=== PATIENT | female | born 1965 | race Caucasian/White ===

== ENCOUNTER → 2016-09-05 | Outpatient (CLI) | payer BC | LOC: KOH-I 09:20 | DX: R05 Cough (principal) | CPT/HCPCS: 71020 ==

== ENCOUNTER 2020-10-07 17:39 | Inpatient (IN) | payer BC, OTHER ==
[~2020-10-07] VITALS: Ht 167.6 cm; Wt 127.9 kg
[~2020-10-07 17:39] MED LIST: BENADRYL 25MG C25 MG PO; PEPCID20 MG PO; PREDNISONE50 MG PO
[2020-10-07 18:43] LABS: HEMOGLOBIN 13.4 gm/dl (12.3-15.3); RED BLOOD COUNT 4.59 M/UL (4.00-5.10); WHITE BLOOD COUNT 21.5 K/UL (4.5-11.0)
[2020-10-07] MEDS ORDERED: POTASSIUM CHLO10 ME2 PO (22:21)
[2020-10-07] MEDS ORDERED: HYDROCHLOROTHIA25 MG PO (22:21)
[2020-10-07] MEDS ORDERED: ATORVASTATIN CA40 MG PO (22:21)
[2020-10-07] MEDS ORDERED: AMLODIPINE-BEN1 EACH PO (22:21)
[2020-10-07] MEDS ORDERED: FEXOFENADINE H180 MG PO (22:22)
[2020-10-09 03:53] LABS: HEMOGLOBIN 10.8 gm/dl (12.3-15.3); RED BLOOD COUNT 3.82 M/UL (4.00-5.10); WHITE BLOOD COUNT 13.2 K/UL (4.5-11.0)
[2020-10-10 04:51] LABS: HEMOGLOBIN 10.6 gm/dl (12.3-15.3); RED BLOOD COUNT 3.77 M/UL (4.00-5.10); WHITE BLOOD COUNT 8.6 K/UL (4.5-11.0)
== END 2020-10-10 15:45 | disposition home or self-care (01) | DRG 872 ==
LOC: ER1 17:39 → CDU 20:20 → MED SURG 4 20:20
PROVIDERS: Internal Medicine Infectious Disease; Physician Assistant Medical; ADMIT Internal Medicine
DX: A41.9 Sepsis, unspecified organism (principal); L03.115 Cellulitis of right lower limb; Z68.42 Body mass index [BMI] 45.0-49.9, adult; I50.32 Chronic diastolic (congestive) heart failure; E87.2 Acidosis; Z20.822 Contact with and (suspected) exposure to COVID-19; E87.6 Hypokalemia; E66.01 Morbid (severe) obesity due to excess calories; E11.9 Type 2 diabetes mellitus without complications; E78.5 Hyperlipidemia, unspecified; I11.0 Hypertensive heart disease with heart failure; Z83.3 Family history of diabetes mellitus; Z84.0 Family history of diseases of the skin and subcutaneous tissue; Z79.84 Long term (current) use of oral hypoglycemic drugs
CPT/HCPCS: 36415; 80053; 82550; 82553; 82962; 83036; 83605; 84484; 85025; 87040; 87081; 93005; 96365; 99284; J0153; J0696; J2543; U0002

== ENCOUNTER → 2020-10-11 | Outpatient (CLI) | payer BC, OTHER ==
[~2020-10-11] MED LIST changes: +AMLODIPINE-BEN1 EACH PO; +ATORVASTATIN CA40 MG PO; +FEXOFENADINE H180 MG PO; +HYDROCHLOROTHIA25 MG PO; +POTASSIUM CHLO10 ME2 PO
== END ==
LOC: OPSV 13:49
DX: L03.115 Cellulitis of right lower limb (principal)
CPT/HCPCS: 96365; J0696

== ENCOUNTER → 2020-10-12 | Outpatient (CLI) | payer BC, OTHER ==
[~2020-10-12] VITALS: Ht 167.6 cm; Wt 127.0 kg
== END ==
LOC: OPSV 11:00
DX: L03.115 Cellulitis of right lower limb (principal); E11.8 Type 2 diabetes mellitus with unspecified complications; I10 Essential (primary) hypertension
CPT/HCPCS: 96365; J0696

== ENCOUNTER → 2020-10-13 | Outpatient (CLI) | payer OTHER | LOC: OPSV 10:36 | DX: L03.115 Cellulitis of right lower limb (principal); A41.9 Sepsis, unspecified organism; E66.01 Morbid (severe) obesity due to excess calories; R73.03 Prediabetes; I11.9 Hypertensive heart disease without heart failure; E87.6 Hypokalemia; E78.5 Hyperlipidemia, unspecified; Z68.41 Body mass index [BMI] 40.0-44.9, adult | CPT/HCPCS: 96365; J0696 ==

== ENCOUNTER → 2020-10-14 | Outpatient (CLI) | payer OTHER ==
[~2020-10-14] VITALS: Ht 167.6 cm; Wt 127.0 kg
== END ==
LOC: OPSV 11:00
DX: L03.115 Cellulitis of right lower limb (principal)
CPT/HCPCS: 96372; J0696

== ENCOUNTER → 2020-10-15 | Outpatient (CLI) | payer OTHER ==
[~2020-10-15] VITALS: Ht 167.6 cm; Wt 127.0 kg
== END ==
LOC: OPSV 11:00
DX: L03.115 Cellulitis of right lower limb (principal); A41.9 Sepsis, unspecified organism; I11.9 Hypertensive heart disease without heart failure; E78.5 Hyperlipidemia, unspecified; R60.0 Localized edema; R73.03 Prediabetes; E87.6 Hypokalemia; E66.01 Morbid (severe) obesity due to excess calories; Z68.41 Body mass index [BMI] 40.0-44.9, adult; Z79.01 Long term (current) use of anticoagulants
CPT/HCPCS: 96365; J0696

== ENCOUNTER → 2020-10-16 | Outpatient (CLI) | payer BC, OTHER | LOC: OPSV 07:26 | DX: L03.115 Cellulitis of right lower limb (principal) | CPT/HCPCS: 96365; J0696 ==

== ENCOUNTER → 2020-10-17 | Outpatient (CLI) | payer OTHER | LOC: OPSV 07:47 | DX: L03.115 Cellulitis of right lower limb (principal) | CPT/HCPCS: 96365; J0696 ==

== ENCOUNTER 2021-04-09 01:59 | Emergency (ER) | payer BC ==
[2021-04-09 03:35] LABS: HEMOGLOBIN 13.1 gm/dl (12.3-15.3); RED BLOOD COUNT 4.44 M/UL (4.00-5.10)
[2021-04-09] MEDS ORDERED: CLEOCIN HCL300 MG PO (04:09)
== END 2021-04-09 04:24 | disposition home or self-care (01) ==
LOC: ER1 01:59
PROVIDERS: Physician Assistant
DX: L03.115 Cellulitis of right lower limb (principal); E11.9 Type 2 diabetes mellitus without complications; I10 Essential (primary) hypertension
CPT/HCPCS: 80053; 85025; 87040; 99283